=== PATIENT | male | born 1975 | race African-American/Black ===

== ENCOUNTER 2018-03-22 07:09 | Emergency (ER) | payer MEDICAID ==
[~2018-03-22] VITALS: Ht 177.8 cm; Wt 95.5 kg
[2018-03-22] MEDS ORDERED: KETOROLAC 30 MG/1 ML ONE (07:41)
[2018-03-22] MEDS ORDERED: DIAZEPAM 5 MG TABLET ONE (07:42)
[2018-03-22] MEDS ORDERED: KETOROLAC 30 MG/1 ML IM ONE (08:00)
[2018-03-22] MEDS ORDERED: DIAZEPAM 5 MG TABLET PO ONE (08:00)
[2018-03-22 08:13] LABS: BASOPHILS # (AUTO) 0.01 x10^3/uL (0-0.1); BASOPHILS % (AUTO) 0 % (0-1); EOSINOPHILS % (AUTO) 1 % (1-7); LYMPHOCYTES # (AUTO) 2.47 x10^3/uL (1-3.4); LYMPHOCYTES % (AUTO) 26 % (22-44); MD NO; MEAN CORPUSCULAR HEMOGLOBIN 24.9 pg (27.5-34.5); MEAN CORPUSCULAR HGB CONC 31.8 g/dL (33.2-36.2); MEAN CORPUSCULAR VOLUME 78.3 fL (81-97); MEAN PLATELET VOLUME 9.3 fL (7.4-10.4); MONOCYTES # (AUTO) 1.01 x10^3/uL (0.2-0.8); MONOCYTES % (AUTO) 11 % (2-9); NEUTROPHILS # (AUTO) 5.77 x10^3/uL (1.8-6.8); NEUTROPHILS % (AUTO) 62 % (42-75); PLATELET COUNT 240 x10^3/uL (130-400); RED CELL DISTRIBUTION WIDTH 13.4 % (9.4-14.8)
[2018-03-22 08:17] LABS: ALANINE AMINOTRANSFERASE 29 U/L (12-78); ALBUMIN 3.8 g/dL (3.4-5.0); ANION GAP 6 mmol/L (5-15); CALCIUM 8.7 mg/dL (8.5-10.1); CHLORIDE 111 mmol/L (98-107); CREATININE 0.98 mg/dL (0.7-1.3)
[2018-03-22 08:21] LABS: ALKALINE PHOSPHATASE 45 U/L (45-117); BILIRUBIN,TOTAL 0.7 mg/dL (0.2-1.0); TOTAL PROTEIN 6.8 g/dL (6.4-8.2); TROPONIN I < 0.015 ng/mL (0.000-0.045)
[2018-03-22 09:38] VITALS: BP 121/75
== END 2018-03-22 09:48 | disposition home or self-care (01) ==
LOC: ED 09:20
DX: M62.838 Other muscle spasm (principal); R07.89 Other chest pain; K21.9 Gastro-esophageal reflux disease without esophagitis
CPT/HCPCS: 36415; 71046; 80053; 84484; 85025; 93005; 96372; 99285; J1885